=== PATIENT | female | born 2000 | race Caucasian/White ===

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

== ENCOUNTER 2020-12-07 18:49 | Emergency (ER) | payer BC, OTHER ==
[2020-12-07 19:04] VITALS: BP 107/65; PULSE 83
--- NOTE | 2020-12-07 19:36 | EDM.PDOC ---
ED HPI GENERAL MEDICAL PROBLEM - General Chief Complaint: Skin Complaint Stated Complaint: RASH ON LEGS Time Seen by Provider: 12/07/20 19:10 Source of Information: Reports: Patient History Limitations: Reports: No Limitations - History of Present Illness INITIAL COMMENTS - FREE TEXT/NARRATIVE: 20-year-old female that has struggling with a persistent rash on her inner thighs bilaterally and on her buttocks. It is a burning sensation, is not itchy and she does not feel sick. She has put some regular lotion on it and has made it a little worse. She has not been exposed to chemicals, fiberglass, does not have any blistering lesions or scabs. Onset: Gradual Duration: Day(s): (Several days) Worsens with: Reports: Other (Topical lotion seem to make it a little worse) Associated Symptoms: Reports: No Other Symptoms - Related Data Allergies Allergy/AdvReac Type Severity Reaction Status Date / Time No Known Allergies Allergy Verified 12/07/20 18:58 Home Meds: Home Meds NK [No Known Home Meds] 04/11/17 [History] Past Medical History - Past Health History Medical/Surgical History: Denies Medical/Surgical History HEENT History: Reports: Impaired Vision Hematologic History: Reports: Iron Deficiency Social & Family History - Caffeine Use Caffeine Use: Reports: Coffee, Soda, Tea ED ROS GENERAL - Review of Systems Review Of Systems: See Below Constitutional: Denies: Fever, Chills Respiratory: Denies: Shortness of Breath Cardiovascular: Denies: Chest Pain GI/Abdominal: Denies: Abdominal Pain Skin: Reports: Rash (Inner thighs and buttocks), Erythema Neurological: Reports: No Symptoms ED EXAM, SKIN/RASH Exam: See Below Exam Limited By: No Limitations General Appearance: Alert, No Apparent Distress Respiratory/Chest: No Respiratory Distress Cardiovascular: Normal Peripheral Pulses Extremities: Other (Patient has a superficial macular erythematous rash along the inner aspects of both eyes and on the contact surfaces of the buttocks, creases are free of rash. There is erythema only, no urticaria, blisters, scabs or excoriations) Course - Vital Signs Last Recorded V/S: Last Vital Signs Temp 98.2 F 12/07/20 19:04 Pulse 83 12/07/20 19:04 Resp 17 12/07/20 19:04 BP 107/65 12/07/20 19:04 Pulse Ox 98 02/08/21 19:04 - Re-Assessments/Exams Free Text/Narrative Re-Assessment/Exam: 12/07/20 19:34 This appears to be some type of superficial contact dermatitis such as fiberglass exposure or chemical. She was given triamcinolone cream to use 3 times a day, and will also take 50 mg of prednisone daily for the next 5 to 6 days. Recheck in 1 week if not significantly improved, return anytime if worsening despite treatment. Departure - Departure Time of Disposition: 19:45 Disposition: Home, Self-Care 01 Clinical Impression: Contact dermatitis Qualifiers: Contact dermatitis type: irritant Contact dermatitis trigger: unspecified trigger Qualified Code(s): L24.9 - Irritant contact dermatitis, unspecified cause - Discharge Information Instructions: Contact Dermatitis Referrals: PCP,None [Primary Care Provider] - Forms: ED Department Discharge Care Plan Goals: Take 5 pills of prednisone before your first meal of the day for at least 5 days, up to 6 days if needed. Use topical triamcinolone up to 3 times daily, wear loose clothing, and consider rechecking in 5 to 7 days if not improving satisfactorily. Return anytime if worsening despite treatment such as fever, worsening rash or increased pain. Sepsis Event Note (ED) - Evaluation Sepsis Screening Result: No Definite Risk - Focused Exam Vital Signs: Vital Signs Temp Pulse Resp BP Pulse Ox 12/07/20 19:04 98.2 F 83 17 107/65 98 12/07/20 19:03 98.2 F 83 17 107/65 98
== END 2020-12-07 19:46 | disposition home or self-care (01) ==
LOC: JP.ED 18:49
DX: L24.9 Irritant contact dermatitis, unspecified cause (principal)
CPT/HCPCS: 99282; 99283